=== PATIENT | female | born 1990 | race African-American/Black ===

== ENCOUNTER 2016-12-22 01:47 | Emergency (ER) | payer OTHER ==
[2016-12-22] MEDS ORDERED: CEPHALEXIN MONOHYDRATE 500 MG CAPSULE (UD) PO ONE (01:59)
[2016-12-22 02:04] VITALS: BP 134/85; PULSE 92; TEMP 99.6; BMI 42.9
[2016-12-22] MEDS ORDERED: CEPHALEXIN MONOHYDRATE 500 MG CAPSULE (UD) ONE (02:07)
--- NOTE | 2016-12-22 02:07 | PDOC ---
History of Present Illness - General Chief Complaint: Pain, Acute Stated Complaint: RIGHT BREAST REDDENED AND ITCHY Time Seen by Provider: 12/22/16 01:49 History Source: Patient Exam Limitations: No Limitations - History of Present Illness Initial Comments: 12/22/16 02:13 26 year old female history of right breast mass under observation by her doctor' s presents with right breast cellulitis. Patient noted associated tactile fevers today as well as redness and discomfort on the skin of her right breast. Patient does have a nipple ring but denies any trauma or injury to the areas. Denies scratching. Past History - Past Medical History Allergies/Adverse Reactions: Allergies Allergy/AdvReac Type Severity Reaction Status Date / Time No Known Allergies Allergy Verified 12/22/16 01:48 Home Medications: Ambulatory Orders Cephalexin [Keflex] 500 mg PO Q6H #28 capsule 12/22/16 Asthma: No Cancer: No Cardiac Disorders: No Diabetes: No HTN: No HIV: Yes Seizures: No Thyroid Disease: No - Immunization History Immunization Up to Date: Yes - Psycho/Social/Smoking Cessation Hx Anxiety: No Suicidal Ideation: No Smoking Status: Yes Smoking History: Former smoker Years of Tobacco Use: 5 Have you smoked in the past 12 months: Yes Number of Cigarettes Smoked Daily: 7 If you are a former smoker, when did you quit?: december Alcohol Use: No Drug/Substance Use Hx: No Hx Substance Use Treatment: No Review of Systems - Review of Systems Able to Perform ROS?: Yes Comments:: 12/22/16 02:14 GENERAL/CONSTITUTIONAL: No fever, weakness. HEAD, EYES, EARS, NOSE AND THROAT: No change in vision. No ear pain or discharge. No sore throat. CARDIOVASCULAR: No chest pain or shortness of breath. RESPIRATORY: No cough, wheezing, or hemoptysis. GASTROINTESTINAL: No abdominal pain, nausea, vomiting, diarrhea, or decreased PO intolerance. GENITOURINARY: No dysuria, frequency, or change in urination. MUSCULOSKELETAL: No joint or muscle swelling or pain. No neck or back pain. SKIN: +Right breast redness NEUROLOGIC: No headache, vertigo, loss of consciousness, or change in strength/ sensation. ENDOCRINE: No increased thirst. No abnormal weight change. HEMATOLOGIC/LYMPHATIC: No anemia, easy bleeding, or history of blood clots. ALLERGIC/IMMUNOLOGIC: No hives or skin allergy. *Physical Exam - Physical Exam Comments: 12/22/16 02:14 GENERAL: Awake, alert, and fully oriented, in no acute distress. HEAD: No signs of trauma EYES: PERRLA, EOMI, sclera anicteric, conjunctiva clear ENT: Auricles normal inspection, hearing grossly normal, nares patent, oropharynx clear without exudates. NECK: Normal ROM, supple, no lymphadenopathy, JVD, or masses LUNGS: Breath sounds equal, clear to auscultation bilaterally. No wheezes, and no crackles HEART: Regular rate and rhythm, normal S1 and S2, no murmurs, rubs or gallops ABDOMEN: Soft, nontender, normoactive bowel sounds. No guarding, no rebound. No masses EXTREMITIES: Normal range of motion, no edema. No clubbing or cyanosis. No cords, erythema, or tenderness NEUROLOGICAL: Cranial nerves II through XII grossly intact. Normal speech, normal gait SKIN: Warm, Dry, normal turgor. Pt noted to have approximately 8x8 cm erythema overlying right lateral breast. No fluctuance or induration appreciated. Underlying breast (chronic) mass appreciated (unchanged). Medical Decision Making - Medical Decision Making 12/22/16 02:17 Vital Signs Temp Pulse Resp BP Pulse Ox 99.6 F 92 H 18 134/85 100 12/22/16 01:56 12/22/16 01:56 12/22/16 01:56 12/22/16 01:56 12/22/16 01:56 This is cellulitis overlying the right breast. Does not involve the nipple. Pt is nontoxic appearing. Will start keflex PO and have patient follow up with her breast physician. Return precautions given including worsening symptoms. Pt verbalizes understanding and agrees with plan. I discussed the physical exam findings, ancillary test results and final diagnoses with the patient. I answered all of the patient's questions. The patient was satisfied with the care received and felt comfortable with the discharge plan and treatment plan. The patient will call their primary care physician within 24 hours to arrange follow-up and will return to the Emergency Department with any new, persistant or worsening symptoms. *DC/Admit/Observation/Transfer Diagnosis at time of Disposition: Cellulitis Qualifiers: Site of cellulitis: unspecified site Qualified Code(s): L03.90 - Cellulitis, unspecified - Discharge Dispostion Disposition: HOME Condition at time of disposition: Stable Admit: No - Prescriptions Prescriptions: Cephalexin [Keflex] 500 mg PO Q6H #28 capsule - Patient Instructions Printed Discharge Instructions: DI for Cellulitis -- Adult Additional Instructions: Please take 500 mg keflex every 6 hours for 7 days. It is very important that you take the antibiotics and complete it. You may take 600 mg ibuprofen every 6 hours as needed for pain. Please follow up with your doctor.
== END 2016-12-22 02:18 | disposition home or self-care (01) ==
LOC: FER 01:47
DX: L03.90 Cellulitis, unspecified (principal); Z21 Asymptomatic human immunodeficiency virus [HIV] infection status; Z87.891 Personal history of nicotine dependence
CPT/HCPCS: 99281-25